=== PATIENT | female | born 1995 | race American Indian/Alaskan Native ===

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

== ENCOUNTER 2020-07-10 08:24 | Inpatient (IN) | payer MEDICAID ==
[2020-07-10] MEDS ORDERED: Penicillin G Potassium 5,000,000 Unit Vial ONE (09:19)
[2020-07-10] MEDS ORDERED: Tranexamic Acid 1,000 MG in Sodium Chloride 0.9% 100 ML IV PRN (09:23)
[2020-07-10] MEDS ORDERED: Misoprostol 400 MCG (4 X 100 MCG TAB) RECTAL PRN (09:23)
[2020-07-10] MEDS ORDERED: Sodium Chloride 0.9% 10 ML Syringe FLUSH PRN (09:23)
[2020-07-10] MEDS ORDERED: Acetaminophen 325 MG Tab PO PRN (09:23)
[2020-07-10] MEDS ORDERED: Lactated Ringers 1,000 ML IV ONE (09:23)
[2020-07-10] MEDS ORDERED: Ondansetron 4 MG/2 ML SDV IVPUSH PRN (09:23)
[2020-07-10] MEDS ORDERED: Lidocaine 1% 30 ML SDV INJECT PRN (09:23)
[2020-07-10] MEDS ORDERED: Methylergonovine 0.2 MG/1 ML Amp IM PRN (09:23)
[2020-07-10] MEDS ORDERED: Carboprost Tromethamine 250 MCG/1 ML Amp IM PRN (09:23)
[2020-07-10] MEDS ORDERED: Penicillin G Potassium 5 MILLUNITS in Sodium Chloride 0.9% 100 ML IV ONE (09:23)
[2020-07-10] MEDS ORDERED: ePHEDrine 50 MG/ML SDV IVPUSH PRN (09:25)
[2020-07-10] MEDS ORDERED: Promethazine 25 MG/ML SDV IM PRN (09:25)
[2020-07-10] MEDS ORDERED: Naloxone 2 MG/2 ML Syringe IVPUSH PRN (09:25)
[2020-07-10] MEDS ORDERED: Oxytocin/Normal Saline 30 UNIT/500 ML BAG IV SCH (09:30)
[2020-07-10] MEDS ORDERED: Sodium Chloride 0.9% 1,000 ML IV SCH (09:30)
[2020-07-10] MEDS ORDERED: Lactated Ringers 1,000 ML IV SCH (09:30)
[2020-07-10] MEDS ORDERED: Benzocaine/Menthol 20%-0.5% Spray 56 GM Canister TOP PRN (10:11)
[2020-07-10] MEDS ORDERED: Simethicone 80 MG Tab.Chew PO PRN (10:11)
[2020-07-10] MEDS: Ibuprofen 800 MG Tab PO PRN (11:40)
[2020-07-10] MEDS ORDERED: Penicillin G Potassium 3 MILLUNITS in Sodium Chloride 0.9% 100 ML IV SCH (14:00)
--- NOTE | 2020-07-10 14:48 | HP ---
ADDENDUM: Please see H and P sent over from the clinic for her scheduled induction. The patient reports that about 3 o'clock in the morning, she had onset of regular contractions becoming stronger and closer together and presented to the hospital shortly after 8 a.m., at which time, her contractions were every 1 to 2 minutes. She was having some bloody show, but no leakage of fluid. movement had been good. No shortness of breath or chest pain. No new problems or complaints reported. OBJECTIVE: monitoring strip shows contractions every 1 to 2 minutes. Contractions lasting 60 to 90 seconds and palpating strong. Cervix was 6 to 7 cm dilated, 100% effaced, and -1 station. Bag of water intact and bloody show noted. Her temperature is 98.0, pulse 120, blood pressure 139/88, and respiratory rate of 18. ASSESSMENT: 1. 40-0/7 weeks' estimated gestational age. 2. History of first trimester bleeding. 3. Obesity with BMI of 35 to 39.9. 4. Varicella susceptible. 5. Blood type A positive, rubella immune, group B strep positive. 6. Active labor established. PLAN: Anticipate progression of normal labor and spontaneous vaginal delivery. Pain medications will be offered as requested and if there is sufficient time. [facility] /[id number] MTDChance
--- NOTE | 2020-07-10 15:05 | DEL ---
DATE: 07/10/2020 PREPROCEDURE DIAGNOSES: 1. A 40-0/7 weeks intrauterine based on 9-week ultrasound. 2. First trimester bleeding history. 3. Obesity with a body mass index of 35 to 39.9. 4. Varicella susceptible. 5. Blood type A-positive, rubella immune, and group B streptococcus positive. 6. COVID negative. POSTPROCEDURE DIAGNOSES: 1. A 40-0/7 weeks intrauterine based on 9-week ultrasound. 2. First trimester bleeding history. 3. Obesity with a body mass index of 35 to 39.9. 4. Varicella susceptible. 5. Blood type A-positive, rubella immune, and group B streptococcus positive. 6. COVID negative. 7. Status post spontaneous vaginal delivery and first-degree laceration repair. BRIEF HISTORY: A 25-year-old female with the above-listed diagnoses who is now 2, para 2-0-0-2, reported to the hospital early this morning after having approximately 5 hours of regular contractions and noting some bloody show. She was already 6 cm to 7 cm dilated on admission and shortly after arrival, went on to complete and had a successful vaginal delivery with 1 contraction and details outlined below. Estimated stage 1, 7 hours; stage 2 only pushed through 1 contraction, and stage 3 was only about 10 minutes. DETAILS OF PROCEDURE: With the patient in dorsal lithotomy position, she delivered a viable male infant over intact perineum in the OA position. Two nuchal cords were noted, but mother was pushing strongly, so baby was somersaulted and then the nuchal cords reduced after delivery of the body. Baby was dried and stimulated, mouth then bulb suctioned. Mother wanted baby taken to the warmer rather than on her abdomen, so I held the baby while we were delaying the cord clamping, and after about a minute and a half, three-vessel umbilical cord was doubly clamped and then cut, and baby taken to the warmer. Cord blood sample was then obtained and placenta delivered by gentle cord traction and concomitant uterine massage. Placenta inspected and intact. The vagina inspected, and there was a first-degree laceration that could form a pocket if not repaired but no significant active bleeding. Difficult for patient to tolerate much for vaginal exam. The laceration area was anesthetized with 1% lidocaine without epinephrine and then the defect repaired with 3 stitches of 3-0 Vicryl in usual fashion. The patient tolerated procedure well. COMPLICATIONS: None. ESTIMATED BLOOD LOSS: 400 mL. FINDINGS: Viable male infant, scores of 9 and 9, and weight 3695 g, 8 pounds 2 ounces with a nuchal cord x2. DISPOSITION: Mother and baby to stay in the room and initiate . [facility] /[id number] [facility]
[2020-07-10] MEDS: Lactated Ringers 1,000 ML IV SCH ×3 (15:27→23:46)
[2020-07-10] MEDS ORDERED: fentaNYL 100 MCG/2 ML SDV ONE (15:37)
[2020-07-10] MEDS ORDERED: fentaNYL 100 MCG/2 ML SDV IVPUSH ONE ×2 (15:38→15:54)
[2020-07-10] MEDS ORDERED: ceFAZolin 1 GM in Premix Bag 1 BAG IV ONE (16:15)
[2020-07-10] MEDS ORDERED: Sodium Chloride 0.9% 200 ML ONE (17:19)
[2020-07-10] MEDS ORDERED: ceFAZolin 2 GM in Premix Bag 1 BAG IV ONE (17:30)
[2020-07-10 18:41] LABS: AMPHETAMINES,URINE NEGATIVE (NEGATIVE); BARBITURATES,URINE NEGATIVE (NEGATIVE); BENZODIAZEPINE,URINE NEGATIVE (NEGATIVE); MDMA (ECSTASY), URINE NEGATIVE (NEGATIVE); METHADONE,URINE NEGATIVE (NEGATIVE); METHAMPHETAMINES,URINE NEGATIVE (NEGATIVE); OPIATES,URINE NEGATIVE (NEGATIVE); OXYCODONE,URINE NEGATIVE (NEGATIVE); PHENCYCLIDINE,URINE NEGATIVE (NEGATIVE); TCA,URINE NEGATIVE (NEGATIVE)
[2020-07-10] MEDS ORDERED: Acetaminophen/HYDROcodone 325-10 MG Tab PO PRN (19:05)
[2020-07-10] MEDS ORDERED: Fluorescein 1 MG Ophth Strip EYELF ONE (19:48)
[2020-07-10] MEDS ORDERED: Fluorescein 1 MG Ophth Strip ONE (19:51)
--- NOTE | 2020-07-10 20:00 | PN ---
DATE: 07/10/2020 SUBJECTIVE: Nurses called me to come and assess the patient this afternoon at approximately 3:20 p.m. due to the patient having fallen in the bathroom. Her boyfriend reported that she felt lightheaded the last 2 times that got up to go to the bathroom, but this time actually fell back and hit her head. He also noticed a large gush of vaginal blood. Prior to this she had normal amounts of locia. Nurses reported that bleeding had been a little bit heavier than average, but now she was passing large clots, and they were not comfortable with the amount of bleeding she was having, so they asked me to come over and evaluate her. OBJECTIVE: Blood pressure is 128/75, pulse of 124, temperature is 98.5. General: The patient appears pale and sleepy or tired. : We positioned her in dorsal lithotomy position and examined externally, and she had a small amount of swelling at the perineum. Clots were removed from the vagina and difficulty getting adequate visualization, so manual removal of clots was performed from the vagina as well as from the uterus confirming that it was not inverted. There was concern of possible cervical laceration that would be palpable but not visualized, and the vaginal sidewall also had a very irregular appearance on the patient's left-hand side, and it looked as though there was a large tear, and the degree of which could not be adequately assessed in the patient's room. Uterus was firm, and the bleeding seemed to be coming from either the cervix or the sidewall, and again visualization was inadequate in the patient's room. Head: no sign of trauma, no ecchymosis, tenderness, or laceration. Eyes: EOMI, pupils equal and reactive. Neuro: no focal deficits. ASSESSMENT: 1. hemorrhage after vaginal delivery. 2. Left vaginal sidewall laceration. 3. Concern for possible cervical laceration. 4. Concern for other contributing factors for hemorrhage. PLAN: Discussed going to the operating room for further investigation under anesthesia and repairing any necessary lacerations, and that I would have another surgeon to assist me as well. Her questions were answered, and she agreed to proceed. The appropriate consent forms will be signed and in the chart. Also, discussed with her potential for blood transfusion given that she had an estimated blood loss of 400 mL at delivery, and since then, sounds like she has had an additional 1000 or 1200 mL of blood loss. [facility] /[id number] MTDD
[2020-07-10] MEDS ORDERED: Tetracaine HCl/PF 0.5% 4 ML Bottle ONE (20:04)
[2020-07-10] MEDS ORDERED: Tetracaine HCl/PF 0.5% 4 ML Bottle EYELF ONE (20:10)
--- NOTE | 2020-07-10 20:37 | OR ---
DATE: 07/10/2020 PREPROCEDURE DIAGNOSES: 1. hemorrhage. 2. Left vaginal sidewall laceration. 3. Other unseen cervical or vaginal trauma as cause of hemorrhage yet to be determined. 4. Status post vaginal delivery. 5. Anemia of blood loss. 6. Syncope with head injury reported. 7. Blood type A positive, rubella immune, group B streptococcus positive. 8. Anemia of . POSTPROCEDURE DIAGNOSES: 1. Left vaginal sidewall laceration with tunneling repaired. 2. First-degree left side labial laceration repaired and first-degree perineal laceration repaired plus small cervical laceration at the 5 o'clock position hemostatic and not repaired. 3. Anemia of blood loss requiring blood transfusion. 4. Other diagnoses as above. SURGEON: Lesa Lara MD CLOTHER IN: Jazmine Osei MD ANESTHESIA: General. BRIEF HISTORY: A 25-year-old female patient came in this morning, and after about 7 hours of labor, pushed through one contraction and delivered an 8 pounds 2 ounces male infant without any anesthesia, and initially, at time of delivery, she was very uncomfortable and did tolerate a first-degree laceration repair being performed under local anesthesia in the delivery room, but due to discomfort and not having significant bleeding, more thorough exam of the vagina was not performed, and the patient was doing well without any significant bleeding. Over the following 6 hours, the patient went on to have some heavier bleeding and passage of large clots. Her boyfriend reports she has had a couple of presyncopal symptoms reported and one actual episode of syncope and hit her head, and nurses assessed her and she was found to have passage of some very large blood clots and continued brisk bleeding. Therefore, I was called over to further assess her. Neurologically, she was doing well and there was no head injury discovered, but on vaginal exam, she did have a left vaginal sidewall tear that I could only partially see and I was unable to visualize her cervix. Therefore, plans were made to take her to the operating room for exam and repairs under anesthesia. CONSENT: Discussed with the patient and her boyfriend; indication of exam under anesthesia with repairs for adequate visualization and to achieve hemostasis, hopefully preventing further complications and transfer; risk of infection and plan for preoperative antibiotics; risk of bleeding to the point of requiring a blood transfusion, and with the anticipated blood loss already, that would be likely; risk of finding other complications or issues that could not be repaired locally; and potential for transfer while still under anesthesia to a larger hospital for definitive repair. The patient's questions were answered, and she signed appropriate consent forms including the blood consent. DETAILS: The patient was brought to the operating room and general anesthesia obtained. She was laid in the dorsal lithotomy position and vagina prepped and sterile drapes applied. Straight urinary catheter placed and removed with 100mL of clear yellow urine. Weighted speculum, sidewall retractors, and right-angle retractors all utilized to obtain adequate visualization of the vagina. She was found to have a large left vaginal sidewall tear with tunneling both anterior and posteriorly, the anterior tunnel approximately 3.5 cm, the posterior tunnel approximately 7.5 cm. Cervix was mainly palpated and partially visualized. There was a 5 o'clock small cervical laceration that was hemostatic and did not need repair. A 3-0 Vicryl suture was called for and used to repair the space of the posterior tunnel and then the anterior tunnel. After both of those were closed, we placed in running suture with intermittent locking sutures for the length of the vaginal sidewall laceration. Hemostasis was very good at that time. No further bleeding from the cervix or uterus was noted. The superficial first-degree lacerations were then repaired with 3-0 Vicryl and excellent hemostasis noted. Vaginal packing x3 was then placed in the vagina to tamponade the laceration and reduce risk of hematoma formation. Rectal exam was then performed to confirm that there was no suture into the rectal area. I also did not palpate any developing hematoma at that time. The patient was allowed to be awoken from anesthesia and doing well. Blood transfusion was initiated during the procedure. ESTIMATED BLOOD LOSS: Maybe 100 mL in the operating room; however, from time of delivery all the way through procedure end, I would estimate the grand total blood loss to be 2000 mL. From the delivery room, the nurses weighed the chucks and the gauze and they measured 1575 mL since her syncopal episode. COMPLICATIONS: None. Unfortunately, this was a delayed diagnosis of a vaginal sidewall laceration due to its location and the patient's discomfort with the initial exam; however, once diagnosed, was managed appropriately. DISPOSITION: The patient will be taken to the PACU, and when she has awoken a little bit more, she will be brought down to the delivery room to spend time with her baby, and I will anticipate giving both units of packed red blood cells that were called for, monitoring her signs and symptoms closely. Fortunately, we have avoided using pressors and hetastarch as her vital signs have been improving with blood transfusion and IV fluids alone. [facility] /[id number] MTDD
[2020-07-10] MEDS: ceFAZolin 1 GM in Premix Bag 1 BAG IV SCH (23:34)
[2020-07-11] MEDS: Lactated Ringers 1,000 ML IV SCH (07:42)
[2020-07-11] MEDS: Docusate Sodium 100 MG Cap PO PRN ×2 (07:47→21:04)
[2020-07-11] MEDS: Prenatal Multivitamin with Calcium/Folic Acid/Iron Tab PO SCH ×2 (07:47→08:42)
[2020-07-11] MEDS: ceFAZolin 1 GM in Premix Bag 1 BAG IV SCH ×2 (07:56→16:24)
--- NOTE | 2020-07-11 14:13 | PN ---
DATE: 07/11/2020 SUBJECTIVE: Postvaginal delivery and postoperative repair of sidewall laceration, day #1. The patient is doing well. She has been up a few times through the night to void which has gone well. No lightheadedness. No chest pain or shortness of breath. Denies any significant pain. Voiding without difficulty. She is eating a regular diet. Vaginal packing an is still in place, but one did come out the last time she was in the bathroom. Reports that the left eye pain or foreign body sensation is improved and overall, she is doing better. She has not had the baby to breast, she anticipates doing that a little bit later on today. The patient did receive 2 units of packed red blood cells overnight and reports no further lightheadedness or syncopal-type symptoms and in general, is feeling pretty good other than being tired from labor, delivery, and the hemorrhage. OBJECTIVE: Vital Signs: Temperature is 98.0, pulse is 96, blood pressure 125/65, respiratory rate of 16, O2 saturations are 100% on room air. Heart: Regular without murmur. Lungs: Clear to auscultation bilaterally. Fundus is firm and below the umbilicus. Bowel sounds are positive and there is no tenderness. Extremities: Full range of motion. No edema, erythema, or tenderness noted. Genitourinary: Next two vaginal packings were removed. The three repair sites are all intact and hemostatic. I did a digital exam and cannot appreciate any hematoma or significant new swelling inside the vagina or the sidewalls. ASSESSMENT: 1. 2, now para 2-0-0-2. 2. Status post spontaneous vaginal delivery. 3. Status post repair in the operating room of a left lateral sidewall laceration of approximately 6 cm in length with tunneling. First-degree laceration repairs. 4. First trimester bleeding. 5. Obesity. 6. Varicella susceptible. 7. Blood type A positive, rubella immune, and group B strep positive. 8. Anemia of acute blood loss. 9. Delayed hemorrhage. 10.Status post 2 units packed red blood cells transfused. 11.Status post syncopal episode with mild head injury. LABORATORY DATA: Admission hemoglobin was 13.8, preoperatively she was down to 10.7. Two units of packed red blood cells were initiated in the operating room and this morning, hemoglobin is down to 8.3. Platelets are down to 174. White blood cell count is fairly stable, admission was 16.9, this morning is 14.1. PLAN: Continue routine cares at this time. We will work with her on getting the baby latch and initiate . Continue to follow her signs and symptoms closely and consider doing another repeat CBC tomorrow. At this time, she is tolerating things well from the anemia standpoint and further blood transfusion is not indicated in the immediate time. She will continue on 24 hours of postoperative antibiotics and will be anticipating discharge home tomorrow. [facility] /[id number] GERARD
[2020-07-11] MEDS ORDERED: Sodium Chloride 0.9% 100 ML IV ONE (15:37)
[2020-07-11] MEDS: Ibuprofen 800 MG Tab PO PRN (15:38)
[2020-07-11] MEDS ORDERED: fentaNYL 100 MCG/2 ML SDV IV ONE (15:50)
[2020-07-11] MEDS ORDERED: Ondansetron 4 MG/2 ML SDV IV ONE (15:50)
[2020-07-11] MEDS ORDERED: Midazolam 1 MG/ML 2 ML SDV IV ONE (15:50)
[2020-07-11] MEDS ORDERED: Dexamethasone 4 MG/ML SDV IV ONE (15:50)
[2020-07-11] MEDS ORDERED: Propofol 200 MG/20 ML SDV IV ONE (15:50)
[2020-07-11] MEDS ORDERED: Rocuronium 100 MG/10 ML MDV IV ONE (15:50)
[2020-07-11] MEDS ORDERED: Lactated Ringers 1,000 ML IV ONE (15:50)
[2020-07-11] MEDS ORDERED: Succinylcholine 200 MG/10 ML MDV IV ONE (15:50)
[2020-07-12 08:23] VITALS: BP 129/70; PULSE 89
[2020-07-12] MEDS: Docusate Sodium 100 MG Cap PO PRN (08:38)
[2020-07-12] MEDS: Prenatal Multivitamin with Calcium/Folic Acid/Iron Tab PO SCH (08:38)
--- NOTE | 2020-07-14 14:25 | DISCH ---
ADMITTING DIAGNOSES: 1. 40 and 0/7 weeks based on 9-week ultrasound. 2. 2, para 1-0-0-1. 3. History of first trimester bleeding. 4. Obesity with a body mass index between 35 and 39.9. 5. Varicella susceptible. 6. Blood type A positive, rubella immune, and group B Strep positive. 7. COVID test negative on admission. DISCHARGE DIAGNOSES: 1. 40 and 0/7 weeks based on 9-week ultrasound. 2. 2, now para 2-0-0-2. 3. History of first trimester bleeding. 4. Obesity with a body mass index between 35 and 39.9. 5. Varicella susceptible. 6. Blood type A positive, rubella immune, and group B Strep positive. 7. COVID test negative on admission. 8. Status post spontaneous vaginal delivery. 9. Status post intraoperative repair of left-sided vaginal sidewall tear and first-degree laceration repair. 10. hemorrhage, estimated 2000 mL total. 11.Status post blood transfusion 2 units of packed red blood cells. 12.Status post syncopal episode without significant head injury. HOSPITAL COURSE: A 25-year-old female with the above-listed diagnoses, presented to the hospital in advanced stages of labor. Nurses initiated penicillin as soon as they could, but was only on board for about a half an hour prior to her rapid delivery. At delivery, the bag of water remained intact until the baby's anterior shoulder was delivered and then remainder of the readily thereafter with a double nuchal cord which was reduced after he was born. Baby did well, score of 9 and 9, weight 3695 g, 8 pounds 2 ounces, length 20-1/4 inches. Initially at delivery, mother had nothing for pain management and it appeared though she had a first-degree laceration that was isolated and that was repaired under local anesthetic without any difficulties. Her bleeding was well controlled. Due to her discomfort, I really was unable to obtain adequate vaginal or cervical exam. About 6 hours , the nurses called to notify me that the patient had a syncopal episode and had hit her head, at which time they noticed heavy vaginal bleeding and passage of large clots. I was able to get an improved but still inadequate exam, but enough to find that there was a large left-sided vaginal sidewall laceration, the extent of which could not be evaluated in the delivery room and cervix could not be visualized. Therefore, she was taken to the operating room and general anesthesia obtained. We then found a left sidewall laceration that extended up to near the cervical area, approximately 6 cm in length with 2 areas of tunneling. Cervix was remarkable for a very small cervical laceration at the 5 o'clock position that did not need repair. All of these things were performed in the operating room with Dr. Osei assisting and appropriate reapproximation of all tissues verified. During the time from delivery all the way until the end of the repair, the estimated blood loss was around 2000 mL. Due to the patient's syncopal episode and tachycardia, she was given 2 units of packed red blood cells after which time she felt better. Her admission hemoglobin was 13.8. Just prior to going to the operating room, it was 10.7. The morning after delivery and surgery, it was up to 8.3, and this would have been also after her transfusion, and then the following day, it was stable around 7.7. After the patient had her transfusions and all of her repairs attended to, she had minimal bleeding and was feeling well from a standpoint. No further syncopal episodes. Pain was well controlled. No chest pain or shortness of breath. No symptoms of preeclampsia or other complications. She elected to bottle feed her baby rather than nurse and felt ready for discharge on day #2. DISCHARGE CONDITION: Good. She is ambulating, tolerating regular diet. PHYSICAL EXAMINATION: Vital Signs: Temperature is 98.1, pulse 89, blood pressure 129/70, respiratory rate of 18, and O2 saturations 99% on room air. Heart: Regular without any murmurs. Lungs: Clear to auscultation bilaterally. Abdomen: soft and nontender. Fundus is firm and below the umbilicus. Extremities: No edema, erythema, or tenderness noted. Skin: Perineal area had a small amount of swelling the day before when we removed the vaginal packing and confirmed there was no vaginal hematomas and her repair sites remained intact and in good condition with good hemostasis. LABORATORY RESULTS: As noted above. Urine drug screen was also performed and negative and COVID test was negative. DISPOSITION: Home with family. MEDICATIONS: Iron 325 mg twice daily, Colace 100 mg twice daily as needed for constipation, ibuprofen 800 mg every 8 hours as needed for pain, Tylenol 650 mg every 8 hours as needed for pain, vitamin continue 1 daily. FOLLOWUP: She will be seen in the office for a 6-week exam, sooner if any problems or concerns arise. We will also be rechecking her when she brings her baby in for the 2-day and 2-week well-child checks. INSTRUCTIONS: Post vaginal delivery care instructions were provided, paying specific attention to no excessive lifting and to be cautious of any signs of infection or bleeding, and certainly any return of the presyncopal symptoms. All of her questions were answered. [facility] /[id number] GERARD
== END 2020-07-12 09:50 | disposition home or self-care (01) | DRG 806 ==
LOC: DL.OBCHECK 08:24 → DL.OB 09:23 → OBSVTOIN 09:51
PROVIDERS: ADMIT Family Medicine; ATTEND Family Medicine
PROC: 10E0XZZ Delivery of Products of Conception, External Approach (ICD-10-PCS; 2020-07-10)
PROC: 0UQGXZZ Repair Vagina, External Approach (ICD-10-PCS; 2020-07-10)
PROC: 30233N1 Transfusion of Nonautologous Red Blood Cells into Peripheral Vein, Percutaneous Approach (ICD-10-PCS; principal; 2020-07-11)
DX: O99.214 Obesity complicating childbirth (principal); O98.52 Other viral diseases complicating childbirth; Z37.0 Single live birth; B01.9 Varicella without complication; D62 Acute posthemorrhagic anemia; E66.9 Obesity, unspecified; Z3A.40 40 weeks gestation of pregnancy; O99.02 Anemia complicating childbirth; O72.2 Delayed and secondary postpartum hemorrhage; Z20.828 Contact with and (suspected) exposure to other viral communicable diseases; O71.4 Obstetric high vaginal laceration alone; S09.90XA Unspecified injury of head, initial encounter; W19.XXXA Unspecified fall, initial encounter
CPT/HCPCS: 00940; 36415; 36430; 59409; 80305-QW; 85014; 85018; 85027; 86850; 86900; 86901; 86920; 86922; A9270-GY; J0330; J0690; J1100; J2001; J2250; J2405; J2540; J2590; J2704; J3010; J7120; P9016; U0002

== ENCOUNTER 2022-01-29 12:54 | Emergency (ER) | payer MEDICAID | END 2022-01-29 14:30 | LOC: DL.ED 12:54 | DX: F41.0 Panic disorder [episodic paroxysmal anxiety] (principal) | CPT/HCPCS: 99282 ==